=== PATIENT | male | born 1985 | race Caucasian/White ===

== ENCOUNTER 2016-10-26 07:07 | Emergency (ER) | payer BC ==
[2016-10-26 07:19] VITALS: BP 119/69
--- NOTE | 2016-10-26 07:27 | UC ---
Ear Complaint HPI - HPI Summary HPI Summary: 1 WEEK OF SHARP RIGHT EAR PAIN. NO HEARING LOSS OR DISCHARGE FROM THE EAR. ALSO HAS RIGHT SIDED ALEXANDRA - DOES NOT FEEL LIKE HIS MIGRAINES. NO RECENT URI. ALSO C/O ONSET OF WATERY STOOLS, NAUSEA AND VOMITING X 1 THIS MORNING. HAS STOMACH BUG. NO FEVER. - History of Current Complaint Chief Complaint: UCEar Stated Complaint: EAR PAIN Time Seen by Provider: 10/26/16 07:19 Hx Obtained From: Patient Onset/Duration: Gradual Onset, Lasting Weeks, Still Present Severity Initially: Moderate Severity Currently: Moderate Pain Intensity: 6 Pain Scale Used: 0-10 Numeric Alleviating Factors: Nothing Associated Signs/Symptoms: Negative: Discharge, Hearing Loss, Foreign Body Sensation, Trauma to Ear, Swelling @, URI Symptoms - Allergies/Home Medications Allergies/Adverse Reactions: Allergies Allergy/AdvReac Type Severity Reaction Status Date / Time No Known Allergies Allergy Verified 10/08/14 00:27 PMH/Surg Hx/FS Hx/Imm Hx Neurological History Of: Reports: Migraine - Surgical History Surgical History: Yes Surgery Procedure, Year, and Place: left shoulder-2016 - Family History Known Family History: Negative: Hypertension, Diabetes - Social History Alcohol Use: Occasionally Substance Use Type: None Smoking Status (MU): Never Smoked Tobacco Review of Systems Constitutional: Negative ENT: Ear Ache Respiratory: Negative Cardiovascular: Negative Gastrointestinal: Negative Neurological: Headache All Other Systems Reviewed And Are Negative: Yes Physical Exam Triage Information Reviewed: Yes Appearance: Well-Appearing, No Pain Distress, Well-Nourished Vital Signs: Initial Vital Signs Temp 98.2 F 10/26/16 07:13 Pulse 73 10/26/16 07:13 Resp 16 10/26/16 07:13 BP 119/69 10/26/16 07:13 Pulse Ox 100 10/26/16 07:13 Vital Signs Reviewed: Yes Eyes: Positive: Conjunctiva Clear ENT: Positive: Hearing grossly normal, Pharynx normal, TMs normal Neck: Positive: Supple, Nontender, No Lymphadenopathy Respiratory Exam: Normal Cardiovascular Exam: Normal Abdomen Description: Positive: Soft Musculoskeletal: Positive: No Edema, Other: - TTP RIGHT TMJ Neurological: Positive: Alert Psychological: Positive: Age Appropriate Behavior Skin: Negative: rashes Ear Complaint Course/Dx - Differential Dx/Diagnosis Provider Diagnoses: 1. TMJ SYNDROME. 2. ACUTE GASTROENTERITIS Discharge - Discharge Plan Condition: Stable Disposition: HOME Prescriptions: Cyclobenzaprine TAB* [Flexeril TAB*] 10 mg PO BID PRN #30 tab PRN Reason: Pain Patient Education Materials: Gastroenteritis (ED), Temporomandibular Disorder ( ED) Referrals: No Primary Care Phys,NOPCP [Primary Care Provider] - Additional Instructions: YOUR SYMPTOMS ARE CONSISTENT WITH TMJ SYNDROME. AVOID CHEWY FOODS. DO NOT CHEW GUM OR OPEN YOUR MOUTH TOO WIDE. TAKE OTC NSAIDS TO HELP WITH DISCOMFORT. MUSCLE RELAXER MAY HELP WELL. BE AWARE THAT FLEXERIL MAY MAKE YOU SLEEPY. ENSURE ADEQUATE HYDRATION. CLEAR LIQUIDS, BLAND DIET. AVOID CAFFEINE, DAIRY, GREASY, SPICY FOODS. ONCE YOU ARE TOLERATING CLEAR LIQUIDS YOU CAN ADVANCE TO SIMPLE, BLAND FOODS. CALL THE NUMBER BELOW FOR ASSISTANCE IN ESTABLISHING WITH A PCP An additional resource available to assist in finding the appropriate physician for your health care needs is the [facility] ([facility]). You may contact them by calling [phone].
== END 2016-10-26 07:36 | disposition home or self-care (01) ==
LOC: UCEAST 07:07
DX: M26.629 Arthralgia of temporomandibular joint, unspecified side (principal); K52.9 Noninfective gastroenteritis and colitis, unspecified
CPT/HCPCS: 99212; G0463

== ENCOUNTER 2018-03-18 17:34 | Emergency (ER) | payer BC ==
[2018-03-18] MEDS ORDERED: Ketorolac INJ* 30 MG/ML 1 ML VIAL IV PUSH ONE (18:07)
[2018-03-18] MEDS ORDERED: NS 0.9% 1000 ML* 1,000 ML IV ONE (18:08)
--- NOTE | 2018-03-18 18:13 | ED ---
GI/ HPI - HPI Summary HPI Summary: 32 male presents with right sided abdominal pain and right flank pain for the past day. He has never had this before. He denies any hematuria or dysuria. He admits to nausea but denies any vomiting. He states the pain waxes and wanes. He denies any injury. He denies any saddle anaesthesia or loss of bowel or bladder. Pain starts in the right lower abdomen and radiates to right flank. no diarrhea or constipation. He has no medical conditions. - History of Current Complaint Chief Complaint: EDFlankPain Time Seen by Provider: 03/18/18 17:59 Stated Complaint: ABD PAIN Pain Intensity: 7 - Allergy/Home Medications Allergies/Adverse Reactions: Allergies Allergy/AdvReac Type Severity Reaction Status Date / Time No Known Allergies Allergy Verified 03/18/18 17:49 PMH/Surg Hx/FS Hx/Imm Hx Endocrine/Hematology History: Denies: Hx Anticoagulant Therapy Respiratory History: Denies: Hx Asthma Sensory History: Denies: Hx Contacts or Glasses Opthamlomology History: Denies: Hx Contacts or Glasses Neurological History: Reports: Hx Migraine - Surgical History Surgery Procedure, Year, and Place: left shoulder-2016 Infectious Disease History: No Infectious Disease History: Denies: Traveled Outside the [place] in Last 30 Days - Family History Known Family History: Negative: Hypertension, Diabetes - Social History Alcohol Use: Occasionally Substance Use Type: Reports: None Smoking Status (MU): Never Smoked Tobacco Review of Systems Negative: Fever Negative: Chest Pain Negative: Shortness Of Breath Positive: Abdominal Pain, Nausea All Other Systems Reviewed And Are Negative: Yes Physical Exam Triage Information Reviewed: Yes Vital Signs On Initial Exam: Initial Vitals Temp Pulse Resp BP Pulse Ox 98.4 F 64 18 144/78 100 03/18/18 17:49 03/18/18 17:49 03/18/18 17:49 03/18/18 17:49 03/18/18 17:49 Vital Signs Reviewed: Yes Appearance: Positive: Well-Appearing Skin: Positive: Warm, Dry Head/Face: Positive: Normal Head/Face Inspection Eyes: Positive: Normal, Conjunctiva Clear ENT: Positive: Pharynx normal Respiratory/Lung Sounds: Positive: Clear to Auscultation, Breath Sounds Present Cardiovascular: Positive: Normal, RRR Abdomen Description: Positive: Soft, CVA Tenderness (R), Other: - tenderness RLQ and RUQ Bowel Sounds: Positive: Present Musculoskeletal: Positive: Normal Neurological: Positive: Normal Psychiatric: Positive: Normal Diagnostics - Vital Signs Vital Signs Temp Pulse Resp BP Pulse Ox 03/18/18 17:49 98.4 F 64 18 144/78 100 - Laboratory Result Diagrams: 03/18/18 18:32 03/18/18 18:32 Lab Statement: Any lab studies that have been ordered have been reviewed, and results considered in the medical decision making process. - CT abd CT Interpretation: No Acute Changes - IMPRESSION: #. No acute abdominal pelvic pathologic process evident. #. Negative for obstructive uropathy. #. Normal appendix documented. CT Interpretation Completed By: Radiologist Re-Evaluation - Re-Evaluation First Eval Re-Evaluation Time: 19:09 Change: Improved Comment: feeling a little bit better after toradol GIGU Course/Dx - Course Course Of Treatment: 32 male presents with right sided abdominal pain and right flank pain for the past day. He has never had this before. He denies any hematuria or dysuria. He admits to nausea but denies any vomiting. He states the pain waxes and wanes. He denies any injury. He denies any saddle anaesthesia or loss of bowel or bladder. Pain starts in the right lower abdomen and radiates to right flank. no diarrhea or constipation. He has no medical conditions. on exam has tenderness RLQ and RUQ and right flank. labs wbc normal. crp normal. CT normal. urine normal. explained do not have a reason for pain but nothing surgical or infectious. told to take tyenlol or ibuprofen. told to follow up with primary. patient understand and agrees with plan. - Diagnoses Differential Diagnoses - Male: Appendicitis, Pyelonephritis, Ureteral Calculi, Urinary Tract Infection Provider Diagnoses: Abdominal pain Discharge - Sign-Out/Discharge Documenting (check all that apply): Patient Departure - Discharge Plan Condition: Good Disposition: HOME Patient Education Materials: Acute Abdominal Pain (ED) Referrals: [facility] [Outside] Additional Instructions: Your pain is not caused by any surgical emergency Take ibuprofen or Tylenol for pain as needed every 6 hours Establish care with primary care physician Return to ED if develop any new or worsening symptoms - Billing Disposition and Condition Condition: GOOD Disposition: Home
[2018-03-18 18:41] LABS: ABS Basophils 0 10^3/ul (0-0.2); ABS Eosinophils 0.1 10^3/ul (0-0.6); ABS Monocytes 0.6 10^3/ul (0-0.8); ABS Neutrophils 3.4 10^3/ul (1.5-7.7); ABS Nucleated RBC 0 10^3/ul; Hematocrit 43 % (42-52); Lymphocyte % 33.1 % (25-47); Mean Corpuscular HGB Conc 35 g/dl (31-36); Mean Corpuscular Hemoglobin 30 pg (27-31); Mean Corpuscular Volume 87 fL (80-94); Mean Platelet Volume 7.6 um3 (7.4-10.4); Nucleated Red Blood Cells % 0.1; Platelet Count 263 10^3/ul (150-450); Red Blood Count 4.96 10^6/ul (4.00-5.40); Red Cell Distribution Width 13 % (10.5-15); White Blood Count 6.2 10^3/ul (3.5-10.8)
--- NOTE | 2018-03-18 18:45 | RAD ---
INDICATION: RIGHT flank and RIGHT lower quadrant pain. COMPARISON: No relevant prior exams available on the [facility] [place] [facility] for comparison. TECHNIQUE: Multidetector CT images were obtained from the lung bases to the ischial tuberosities. Evaluation of the viscera is limited without IV contrast. Multiplanar reformation. REPORT: Unremarkable visualized inferior thorax. The unenhanced liver, gallbladder, pancreas, and spleen are unremarkable. The Negative for CT abnormality of the upper GI, small bowel, or retrocecal appendix. Mild diverticulosis at the proximal sigmoid colon without findings of acute diverticulitis. Negative for ascites, free air, or significant hernias. Normal adrenal glands. Unremarkable kidneys, ureters, and moderately distended urinary bladder. Negative for urolithiasis or hydronephrosis. Symmetric seminal vesicles. Negative for lymphadenopathy. Normal diameter abdominal aorta and iliac arteries. Physiologic distention of the IVC. Negative for suspicious osseous lesions. Normal variant unfused limbus vertebrae at the anterior superior endplate of the L4 vertebral body without concern. IMPRESSION: #. No acute abdominal pelvic pathologic process evident. #. Negative for obstructive uropathy. #. Normal appendix documented.
[2018-03-18 18:58] LABS: EGFR Non-African American 81.1 (>60)
[2018-03-18 19:55] LABS: Urine Appearance Clear; Urine Blood Negative (Negative); Urine Color Yellow; Urine Ketones Negative (Negative); Urine Protein Negative (Negative); Urine Specific Gravity 1.012 (1.010-1.030); Urine Urobilinogen Negative (Negative)
[2018-03-18 20:32] VITALS: BP 119/58
== END 2018-03-18 20:32 | disposition home or self-care (01) ==
LOC: ED 17:34
DX: R10.31 Right lower quadrant pain (principal); R10.11 Right upper quadrant pain
CPT/HCPCS: 36415; 74176; 80053; 81003; 83690; 85025; 86140; 96361; 96374; 99282; J1885